=== PATIENT | female | born 1965 | race Caucasian/White ===

== ENCOUNTER 2020-02-29 11:51 | Outpatient (CLI) | payer BC, SELFPAY ==
--- NOTE | ~2020-02-29 | MM_ITS ---
EXAMINATION: MM diagnostic paco BI w rocky HISTORY: Follow-up of right upper outer quadrant microcalcifications. Screening of left breast. TECHNIQUE: ML, MLO and cc 3-D tomosynthesis images of both breasts were performed and synthetic 2-D i mages were generated. CAD analysis was submitted and interpreted. COMPARISON: 04/24/2019 diagnostic right digital mammogram 10/03/2018 diagnostic right digital mammogram , 09/03/2017, 08/23/2016 bilateral digital screening mammogram examinations BREAST PARENCHYMAL COMPOSITION: The breasts are heterogeneously dense, which may obscure small masses . FINDINGS: Occasional bilateral benign calcifications are noted. There is a biopsy marker in the upper outer quadrant of the right breast. History of prior benign rig ht breast biopsy. No suspicious mass, architectural distortion, malignant calcification, skin thickening or retraction or significant new or developing density since 08/23/2016 is detected. IMPRESSION: 1. No mammographic evidence of malignancy 2. Routine mammographic screening is recommended. BI-RADS Category 2: Benign finding(s). Reviewed, dictated and finalized at location A.
== END 2020-02-29 11:52 | disposition home or self-care (01) ==
LOC: ANHIMG 11:55
PROVIDERS: PCP Family Medicine; Visit Provider Obstetrics & Gynecology Gynecology
DX: R92.8 Other abnormal and inconclusive findings on diagnostic imaging of breast (principal)
CPT/HCPCS: 77062; 77066; G0279

== ENCOUNTER 2021-04-04 13:44 | Outpatient (CLI) | payer BC, SELFPAY ==
--- NOTE | ~2021-04-04 | MM_ITS ---
EXAMINATION: MM screening paco BI w rocky HISTORY: Screening TECHNIQUE: Craniocaudal and mediolateral oblique 3-D tomosynthesis images were obtained and synthetic 2-D images were generated. CAD analysis was submitted and interpreted. COMPARISON: Comparison to multiple prior studies sequentially, with oldest reviewed study dated 08/23. BREAST PARENCHYMAL COMPOSITION: The breasts are heterogeneously dense, which may obscure small masses . FINDINGS: There is no evidence of suspicious mass, calcification, or architectural distortion to sugg est malignancy in either breast. There has been no suspicious interval change. IMPRESSION: 1. No mammographic evidence of malignancy. 2. Recommend routine screening mammography in one year. BI-RADS Category 1: Negative Reviewed, dictated and finalized at location A.
== END 2021-04-04 13:45 | disposition home or self-care (01) ==
LOC: ANHIMG 13:47
PROVIDERS: PCP Family Medicine; Visit Provider Obstetrics & Gynecology Gynecology
DX: Z12.31 Encounter for screening mammogram for malignant neoplasm of breast (principal)
CPT/HCPCS: 77063; 77067

== ENCOUNTER 2022-01-25 00:34 | Day surgery (SDC) | payer BC, SELFPAY ==
[2022-01-11 11:31] VITALS: BMI 22.3
--- NOTE | 2022-01-24 13:59 | P.PNAN_ITS ---
Anes - Initial Pre Proc Eval Procedure: Operation Date: 01/25/22 09:00 Proposed Procedures p Screening Colonoscopy - Harris Mcrae MD Date/Time: 01/24/22 13:59 Surgeon: Harris Mcrae MD Pre Op Diagnosis: neoplasm screening Patient Data Age: 56 Gender: F Height: 1.63 m Weight: 59 kg Allergies Allergy/AdvReac Type Severity Reaction Status Date / Time No Known Allergies Allergy Verified 01/25/22 07:44 Home Medications Medication Instructions Recorded Confirmed Type nortriptyline 75 mg capsule 75 mg PO DAILY 10/09/19 01/25/22 History simvastatin 10 mg tablet 10 mg PO DAILY 10/09/19 01/25/22 History lorazepam 0.5 mg tablet 0.5 mg PO DAILY PRN anxiety #30 03/20/21 01/25/22 Rx tabs escitalopram oxalate 10 mg tablet 10 mg PO DAILY #30 tabs 10/19/21 01/25/22 Rx sodium sul 1.479 gram-potas ch See Rx Instructions PO PER PKG DIR 01/03/22 01/25/22 Rx 0.188 gram-magnes sul 0.225 gram #24 tabs tablet (Sutab) Patient hx anesthesia problems: none Family hx anesthesia problems: none Results Review: All pre-operative results and documents have been reviewed as part of the pre- operative evaluation. [facility] Past Medical History Medical History Anxiety disorder, unspecified Migraine Mixed hyperlipidemia Family History Family History Father Hypertension Family history of mental disorder, Onset Age: 88 Cerebrovascular accident, Onset Age: 88 Mother Family history of mental disorder Family history of arthritis Social History Social History Smoking status: Never smoker Alcohol intake: never Substance use: never Substance use type: does not use Living arrangements: with family Spiritual care concerns: No Anes - Eval Final PreProcedure Day of Procedure 01/24/22 13:59 Patient weight: normal Heart: regular rate and rhythm Lungs: clear to auscultation Airway: Mallampati scale class II Neurological: alert and oriented Last oral intake: >/= 8 hours ASA classification: II Emergent: no Anesthetic plan: proceed Anesthesia type and monitoring: general GIVS and standard monitoring Results Review: All pre-operative results and documents have been reviewed as part of the pre- operative evaluation. Informed Consent: The patient's anesthetic plan and its attendant risks and benefits were discussed with the patient/family/POA. Questions were solicited and answers provided to the satisfaction of the patient/family/POA.
[2022-01-25 07:45] VITALS: BP 109/67; PULSE 104; RESP 16; TEMP 36.4; O2SAT 100
[2022-01-25] MEDS: LACTATED RINGERS 1,000 ML 150 ML IV CONT (07:53)
--- NOTE | 2022-01-25 08:17 | PM.HPGS ---
History of Present Illness History of Present Illness Consent: Risks, benefits, and alternatives have been discussed and questions answered. Patient agrees to proceed with procedure. Chief complaint: neoplasm screening Narrative: Bia Marrufo is a 56 year old female Referred for colon cancer screening. Review of Systems Review of Systems: All systems reviewed & are unremarkable except as noted in HPI and below PMFSH Past Medical History Medical History Anxiety disorder, unspecified Migraine Mixed hyperlipidemia Family History Family History Father Hypertension Family history of mental disorder, Onset Age: 88 Cerebrovascular accident, Onset Age: 88 Mother Family history of mental disorder Family history of arthritis Social History Social History Smoking status: Never smoker Alcohol intake: never Substance use: never Substance use type: does not use Living arrangements: with family Spiritual care concerns: No Meds Home Medications and Allergies Home Medications Medication Instructions Recorded Confirmed Type nortriptyline 75 mg capsule 75 mg PO DAILY 10/09/19 01/25/22 History simvastatin 10 mg tablet 10 mg PO DAILY 10/09/19 01/25/22 History lorazepam 0.5 mg tablet 0.5 mg PO DAILY PRN anxiety #30 03/20/21 01/25/22 Rx tabs escitalopram oxalate 10 mg tablet 10 mg PO DAILY #30 tabs 10/19/21 01/25/22 Rx sodium sul 1.479 gram-potas ch See Rx Instructions PO PER PKG DIR 01/03/22 01/25/22 Rx 0.188 gram-magnes sul 0.225 gram #24 tabs tablet (Sutab) Allergies Allergy/AdvReac Type Severity Reaction Status Date / Time No Known Allergies Allergy Verified 01/25/22 07:44 Vital Signs Vital Signs - 24 hr 01/25/22 07:45 Temperature 36.4 C Pulse Rate 104 H Respiratory Rate 16 Blood Pressure 109/67 Pulse Oximetry 100 Oxygen Delivery Room Air Exam Const: General: alert Orientation/consciousness: patient oriented x3 Resp: Auscultation: clear to auscultation bilaterally Cardio: Rhythm: regular rhythm GI: GI Palp: Yes Soft to palpation and No Tenderness to palpation present (GI) Neuro: General: patient oriented x3 Assessment and Plan Assessment and plan (1) Colon cancer screening: Code(s): Z12.11 - Encounter for screening for malignant neoplasm of colon Status: Acute Assessment and Plan: Colonoscopy with possible biopsy or polypectomy or cautery or injection of substances.
[2022-01-25 09:14] VITALS: BP 101/58; PULSE 84; RESP 11; O2SAT 100
[2022-01-25 09:24] VITALS: BP 97/65; PULSE 84; RESP 14; O2SAT 100
[2022-01-25 09:34] VITALS: BP 107/59; PULSE 86; RESP 18; O2SAT 100
== END 2022-01-25 09:40 | disposition home or self-care (01) ==
PROVIDERS: PCP Family Medicine; Visit Provider Internal Medicine Gastroenterology
PROC: 0DJD8ZZ Inspection of Lower Intestinal Tract, Via Natural or Artificial Opening Endoscopic (ICD-10-PCS; CPT 45378; principal; 2022-01-25 09:00)
DX: Z12.11 Encounter for screening for malignant neoplasm of colon (principal); F41.9 Anxiety disorder, unspecified; E78.2 Mixed hyperlipidemia
CPT/HCPCS: 45378; J2704; J7120

== ENCOUNTER 2023-02-15 07:33 | Outpatient (CLI) | payer BC, SELFPAY ==
--- NOTE | ~2023-02-15 | MM_ITS ---
EXAMINATION: MM screening paco BI w rocky HISTORY: Screening mammogram TECHNIQUE: Craniocaudal and mediolateral oblique 3-D tomosynthesis images were obtained and synthetic 2-D images were generated. CAD analysis was submitted and interpreted. COMPARISON: 04/04/2021, 02/29/2020, 04/24/2019 bilateral screening mammogram examinations BREAST PARENCHYMAL COMPOSITION: The breasts are heterogeneously dense, which may obscure small masses . FINDINGS: There is a biopsy marker on the right, in the upper outer quadrant; history of prior benign right breast biopsy. There is no evidence of suspicious mass, calcification, or architectural distor tion to suggest malignancy in either breast. There has been no suspicious interval change. IMPRESSION: 1. No mammographic evidence of malignancy. 2. Recommend routine screening mammography in one year. BI-RADS Category 1: Negative Reviewed, dictated and finalized at location A.
--- NOTE | ~2023-02-15 | DEXA_ITS ---
Bone Density Report Name: LAYTON LI Age: 57 Sex: Female Ethnicity: White Date of : 1965 Indication: postmenopausal; screening for osteoporosis; Referring Provider: HILARIA, RAMY Study: Bone densitometry was performed. Exam Date: February 15, 2023 Accession number: [id number] Bone Density: Region BMD T-score Z-score Classification AP Spine(L1-L4) 1.088 0.4 1.7 Normal Femoral Neck (Left) 0.759 -0.8 0.4 Normal Total Hip (Left) 0.997 0.4 1.3 Normal World Health Organization criteria for BMD impression classify patients as: Normal (T-score at or above -1.0), Osteopenia (T-score between -1.0 and -2.5), or Osteoporosis (T-score at or below -2.5). 10-year Fracture Risk: FRAX not reported because: All T-scores for Spine Total, Hip Total, Femoral Neck at or above -1.0 Previous Exams: Region Exam Age BMD T-score BMD Change BMD Change Date g/cm2 vs Baseline vs Previous AP Spine (L1-L4) 02/15/2023 57 1.088 0.4 -0.066 (-5.7%) -0.066 (-5.7%) 09/09/2018 53 1.153 1.0 Total Hip(Left) 02/15/2023 57 0.997 0.4 -0.120 (-10.7% -0.120 (-10.7% 09/09/2018 53 1.116 1.4 *Denotes significance at 95% confidence level, LSC for AP Spine = 0.022 g/cm2, LSC for Total Hip = 0.027 g/cm2 Clinical Information Provided by Patient: Has used the following medications: Vitamin D Patient maximum height was 64.5 Menopause Age: 52 No regular weight bearing exercise Does not regularly consume dairy products Drinks caffeinated beverages Onset of menses at age 11 Number of children 2 Impression: The patient has normal bone mass. The BMD for the AP Spine (L1-L4) decreased, changing by -5.7% since the last DXA exam. The BMD for the Total Hip(Left) decreased, changing by -10.7% since the last DXA exam. Discussion: BONE DENSITY IS ABOVE THE MINIMUM DESIRABLE LEVEL AT ALL SKELETAL SITES TESTED. This patient?s bone mineral density is above the minimum desirable level (T-score -1.0 or better) at all sites measured. The patient should follow a healthful lifestyle (good nutrition with adequate calcium and vitamin D, and appropriate weight-bearing exercise). Follow-Up: Consider repeating this study in 3 to 4 years to reassess this patient's status, or sooner if there is some new clinical indication. Reported by: ISMAEL on 02/15/2023 8:05:00 AM. Reviewed, dictated and finalized at location AMaryanne TONY
== END 2023-02-15 07:34 | disposition home or self-care (01) ==
PROVIDERS: PCP Family Medicine; Visit Provider Obstetrics & Gynecology Gynecology
DX: Z12.31 Encounter for screening mammogram for malignant neoplasm of breast (principal); Z78.0 Asymptomatic menopausal state
CPT/HCPCS: 77063; 77067; 77080

== ENCOUNTER 2024-01-29 11:50 | Outpatient (CLI) | payer BC, SELFPAY ==
--- NOTE | ~2024-01-29 | XR_ITS ---
EXAMINATION: XR shoulder LT min 2V DATE: 01/29/2024 12:12 INDICATION: Left shoulder numbness. TECHNIQUE: 4 views of left shoulder were obtained. COMPARISON: None. FINDINGS: Alignment is normal. No fracture. Glenohumeral joint is normal. There is moderate acromiocl avicular joint osteoarthritis. IMPRESSION: 1. Moderate left acromioclavicular joint osteoarthritis. Reviewed, dictated and finalized at location A.
--- NOTE | ~2024-01-29 | XR_ITS ---
[id number] Ordering provider: Perfecto Reynolds NP History: . No injury, left shoulder numbness for 12 weeks . Comparison: None. FINDINGS: VERTEBRAL BODIES: Normal height and alignment. No visible fracture or subluxation. The dens is intact . Degenerative changes of the spine. DISK SPACES: Narrowing of the disc spaces C3-C4, C4-C5, C5-C6 and C6-7. Multilevel uncovertebral join t osteoarthritic changes. PARASPINOUS SOFT TISSUES: No prevertebral soft tissue swelling. IMPRESSION: No acute osseous abnormality cervical spine. Consider follow up MRI of the cervical spine if patient has continued neck pain and if there is freddie rn for spinal stenosis. Reviewed, dictated and finalized at location A. IMPRESSION: No acute osseous abnormality cervical spine. Consider follow up MRI of the cervical spine if patient has continued neck pain and if there is concern for spinal stenosis.
--- NOTE | ~2024-01-29 | XR_ITS ---
EXAMINATION: XR thoracic spine 2V DATE: 01/29/2024 12:12 INDICATION: Left shoulder numbness. TECHNIQUE: 2 views of thoracic spine were obtained. COMPARISON: None. FINDINGS: There is 12 degrees levoscoliosis of thoracic spine. Vertebral body heights are normal. The re is mildly decreased disc height at multiple levels in mid thoracic spine. There are endplate osteo phytes at many levels. IMPRESSION: 1. Mild thoracic spondylosis. 2. Thoracic levoscoliosis. Reviewed, dictated and finalized at location A.
== END 2024-01-29 11:51 ==
LOC: MICIMG 11:53
PROVIDERS: PCP Family Medicine
DX: M54.12 Radiculopathy, cervical region (principal); R20.2 Paresthesia of skin; M47.894 Other spondylosis, thoracic region
CPT/HCPCS: 72040; 72070; 73030

== ENCOUNTER 2024-06-16 07:19 | Outpatient (CLI) | payer BC, SELFPAY ==
--- NOTE | ~2024-06-16 | MM_ITS ---
EXAMINATION: MM screening [facility] BI w rocky HISTORY: Screening mammogram TECHNIQUE: Craniocaudal and mediolateral oblique 3-D tomosynthesis images were obtained and synthetic 2-D images were generated. CAD analysis was submitted and interpreted. COMPARISON: 02/15/2023, 04/04/2021, 02/29/2020 BREAST PARENCHYMAL COMPOSITION:Dense: The breasts are heterogeneously dense, which may obscure small masses. FINDINGS: No suspicious mass, calcification, or architectural distortion are identified in either anna ast to suggest malignancy. There has been no suspicious interval change. IMPRESSION: No mammographic evidence of malignancy. Recommend routine screening mammography in one year. BI-RADS Category 1: Negative Reviewed, dictated and finalized at location . DWORKS DESIGNER
== END 2024-06-16 07:20 | disposition home or self-care (01) ==
PROVIDERS: PCP Family Medicine; Visit Provider Nurse Practitioner
DX: Z12.31 Encounter for screening mammogram for malignant neoplasm of breast (principal)
CPT/HCPCS: 77063; 77067

== ENCOUNTER 2024-11-20 12:20 | Outpatient (CLI) | payer BC, SELFPAY ==
--- NOTE | ~2024-11-20 | XR_ITS ---
AP view of the pelvis and AP and lateral views of the left hip Clinical history: Pain Findings: No acute fracture or dislocation is seen. Osseous alignment is anatomic. Right hip arthropl asty in place. There is moderate degenerative change at the superior aspect of the left hip joint. So ft tissues are unremarkable. Impression: Moderate degenerative changes at the superior aspect the left hip joint. Right hip arthroplasty. Reviewed, dictated and finalized at location . Impression: Moderate degenerative changes at the superior aspect the left hip joint. Right hip arthroplasty.
--- NOTE | ~2024-11-20 | XR_ITS ---
Lumbosacral Spine: AP and lateral views Clinical History: Pain Findings: The normal lordotic curve is maintained. The vertebral bodies and posterior elements are i ntact. The intervertebral disc spaces are preserved. There is moderate facet arthropathy, especially from L4 through S1. The sacroiliac joints are normally outlined. Impression: Facet arthropathy at the lower lumbar spine, as above. Reviewed, dictated and finalized at location . Impression: Facet arthropathy at the lower lumbar spine, as above.
--- OUTSIDE RECORDS SUMMARY | 2024-11-20 12:25 | XMS_ITS | Referral Summary ---
Author Organization [facility] [address] Address [address] [place] [address] Care Team Providers Care Political Science Professor Name Role Phone Fco Ayala MD Primary Care Provider [phone] Encounters Date Type Department Care Team Description 09/02/2024 1:30 PM LUNCHROOM MOTHER Office Visit 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 (Primary Dx); Dyslipidemia; History of supraventricular tachycardia; Palpitations from Last 3 Months Allergies Active Allergy Reactions Criticality Noted Date Comments Shrimp Vomiting Low 11/08/2023 I get violently ill Medications nitroglycerin (NITROSTAT) 0.[address] 1 tablet (0.4MG) by sublingual route at the 1st sign of attack; may repeat every 5 min until relief; if pain persists after 3 tablets in 15 min, prompt medical attention is recommended 0 1 Active aspirin (HALFPRIN) 162 mg EC tablet take 1 tablet by oral route every day 0 1 Active Additional Information Patient taking differently: 81 mg, Reported on 09/02/2024 LORazepam (ATIVAN) 0.5 mg tablet take 1 Tablet by oral route every day as needed 0 0 6 Active nortriptyline (PAMELOR) 75 mg capsule take 1 capsule by oral route every day 0 1 Active escitalopram (LEXAPRO) 10 mg tablet take 1 tablet by oral route every day 0 0 7 Active Additional Information Patient taking differently:10 mgoral Daily, Informant: Self, Reported on 09/02/2024 cholecalciferol (VITAMIN D-3) 2000 unit capsule Take 1 capsule (2,000 Units total) by mouth daily 3 Active simvastatin (ZOCOR) 20 mg tablet TAKE 1 TABLET BY MOUTH EVERY DAY IN THE EVENING 90 tablet 1 4 Active Active Problems Problem Noted Date Diagnosed Date Coronary artery disease invo lving false pass coronary artery of false pass heart without angina pectoris 09/02/2024 Numbness and tingling in left arm 10/22/2023 Palpitations 10/09/2022 Gastroesophageal reflux disease 09/16/2020 History of supraventricular tachycardia 05/17/20 17 Other chest pain 05/17/2017 Anxiety 05/17/2017 Dyslipidemia 05/17/2017 History of cardiac arrhythmia 09/27/2016 Overview (11/09/2016): History of supraventricular tachycardia Chest discomfort 09/27/2016 Overview (11/09/2016): Chest pressure Social History Tobacco Use Types Packs/Day Years Used Date Smoking Tobacco: Never Smokeless Tobacco: Never Tobacco Cessation:Counseling Given: Not Answered Alcohol Use Standard Drinks/Week Comments No 0 (1 standard drink = 0.6 oz pur e alcohol) Comments Unknown Sex and Gender Information Value Date Recorded Sex Assigned at Not on file Legal Sex Female 12:32 AM LUNCHROOM MOTHER Gender Identity Not on file Sexual Orientation Not on file Last Filed Vital Signs Vital Sign Reading Time Taken Comments Blood Pressure 110/70 09/02/2024 1:21 PM LUNCHROOM MOTHER Pulse 89 09/02/2024 1:21 PM LUNCHROOM MOTHER Temperature - - Respiratory Rate 16 03/17/2018 11:52 AM CDT Oxygen Saturation 97% 09/02/2024 1:21 PM LUNCHROOM MOTHER Inhaled Oxygen Concentration - - Weight 61.7 kg (136 lb) 09/02/2024 1:21 PM LUNCHROOM MOTHER Height 162.6 cm (5' 4 ) 09/02/2024 1:21 PM LUNCHROOM MOTHER Body Mass Index 23.34 09/02/2024 1:21 PM LUNCHROOM MOTHER Plan of Treatment Not on file Insurance ANTHEM ACCESS CHOICE [employer] ACCESS CHOICE ANTHEM ACCESS CHOICE Care Teams Political Science Professor Relationship Specialty Start Date End Date Fco Ayala MD PCP - General 11/02/16
--- OUTSIDE RECORDS SUMMARY | 2024-11-20 12:25 | XMS_ITS | Encounter Summary ---
Author Organization [facility] Address [address] [place] [address] Care Team Providers Care Cable Mock Up Assembler Name Role Phone Fco Ayala MD Primary Care Provider + [phone] Fco Ayala MD Primary Care Provider + [phone] Encounter Details Date Type Department Care Team (Late st Contact Info) Description 09/27/2016 Orders Only [facility] ProviderDaja MD [address] [place] [id number] Social History Tobacco Use Types Packs/Day Years Used Date Smoking Tobacco: Never Alcohol Use Standard Drinks/Week Comments No 0 (1 standard drink = 0.6 oz pur e alcohol) Comments Unknown Sex and Gender Information Value Date Recorded Sex Assigned at Not on file Legal Sex Female 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 Historical Provider [facility] Final Result documented in this encounter Visit Diagnoses Not on filedocumented in this encounter Care Teams Cable Mock Up Assembler Relationship Specialty Start Date End Date Fco Ayala MD PCP - General 11/02/16 Fco Ayala MD PCP - General 03/13/11 11/01/16 documented as of this encounter
--- OUTSIDE RECORDS SUMMARY | 2024-11-20 12:25 | XMS_ITS | Clinical Summary ---
Author Organization [facility] Address [address] [place] [address] Care Team Providers Care Black Off Worker Name Role Phone Fco Ayala MD Primary Care Provider [phone] Social History Tobacco Use Types Packs/Day Years Used Date Smoking Tobacco: Never Assessed Comments Unknown Sex and Gender Information Value Date Recorded Sex Assigned at Not on file Legal Sex Female 11:15 PM GEOMATICS PROFESSOR Gender Identity Not on file Sexual Orientation Not on file Plan of Treatment Health Maintenance Due Date Last Done Comments Cervical Cancer Screening Pap Smear (Age 30 to 64) Every 3 Years 1965 Colorectal Cancer Screening Colonoscopy (10 Years) 1965 Annual Physical 1967 Hepatitis C 1982 Cervical Cancer Screening Pap with HPV Testing (Age 30 to 64) Every 5 Years 1994 Cervical Cancer Screening with HPV 1994 Mammogram Screening 2004 Zoster Vaccines (1 of 2) 2014 COVID-19 Vaccine ( season) 2024 05/08/2023, 02/20/2022, 07/17/2021, Additional history exists DTaP, Tdap and Td Vaccines (2 - Td or Tdap) 02/16/2031 02/16/2021 RSV Immunization or 60+ Years (1 - 1-dose 75+ series) 2039 Meningococcal B Vaccine Aged Out No l onger eligible based on patient's age to complete this topic Meningococcal Vaccine Aged Out No armani harika eligible based on patient's age to complete this topic Pneumococcal Vaccine: Pediatrics (0 to 5 Years) and At-Risk Patients (6 to 49 Years) Aged Out No longer eligible based on patient's age to complete this topic RSV Immunizations Under 20 Months Aged Out No longer eligible based on patient's age to complete this topic Insurance [facility] Care Teams Black Off Worker Relationship Specialty Start Date End Date Fco Ayala MD [address] [place] [address] PCP - General FAMILY PRACTICE 06/07/23
--- OUTSIDE RECORDS SUMMARY | 2024-11-20 12:25 | XMS_ITS | Encounter Summary ---
Author Organization [facility] Address [address] [place] [address] Care Team Providers Care Ingot Stripper Name Role Phone Fco Ayala MD Primary Care Provider + [phone] Fco Ayala MD Primary Care Provider + [phone] Encounter Details Date Type Department Care Team (Late st Contact Info) Description 10/04/2016 Orders Only [facility] ProviderDaja MD [address] [place] [id number] Social History Tobacco Use Types Packs/Day Years Used Date Smoking Tobacco: Never Alcohol Use Standard Drinks/Week Comments No 0 (1 standard drink = 0.6 oz pur e alcohol) Comments Unknown Sex and Gender Information Value Date Recorded Sex Assigned at Not on file Legal Sex Female 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 Historical Provider [facility] Final Result documented in this encounter Visit Diagnoses Not on filedocumented in this encounter Care Teams Ingot Stripper Relationship Specialty Start Date End Date Fco Ayala MD PCP - General 11/02/16 Fco Ayala MD PCP - General 03/13/11 11/01/16 documented as of this encounter
--- OUTSIDE RECORDS SUMMARY | 2024-11-20 12:25 | XMS_ITS | Clinical Summary ---
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 09/02/2024 Numbness and tingling in left arm 10/22/2023 Palpitations 10/09/2022 Gastroesophageal reflux disease 09/16/2020 History of supraventricular tachycardia 05/17/20 17 Other chest pain 05/17/2017 Anxiety 05/17/2017 Dyslipidemia 05/17/2017 History of cardiac arrhythmia 09/27/2016 Overview (11/09/2016): History of supraventricular tachycardia Chest discomfort 09/27/2016 Overview (11/09/2016): Chest pressure Encounters Date Type Department Care Team Description 09/02/2024 1:30 PM [employer] Office Visit [facility] [address] [facility] [address] [place] [address] Matthieu Villasenor MD Coronary artery disease involving seneca coronary artery of seneca heart without angina pectoris (Primary Dx); Dyslipidemia; History of supraventricular tachycardia; Palpitations from Last 3 Months Surgical History Surgery Date Site/Laterality Comments TUBAL LIGATION Bilateral tubal ligation JOINT REPLACEMENT 12/04/2015 - 01/03/2016 Medical History Medical History Date Comments Hx Other Medical Migraines Hx Other Medical Chronic Anxiety Peptic ulcer 1995 Peptic Ulcer Dis ease Anxiety Arthritis Migraines Family History Medical History Relation Name Comments Coronary artery disease Father Ian Guerrero naralejandra Artery Bypass Graft; Diabetes Father Ian Arthritis Mother Richard Other Mother Richard Alive and well; Relation Name Status Comments Father Ian Alive Mother Richard Alive Social History Tobacco Use Types Packs/Day Years Used Date Smoking Tobacco: Never Smokeless Tobacco: Never Tobacco Cessation:Counseling Given: Not Answered Alcohol Use Standard Drinks/Week Comments No 0 (1 standard drink = 0.6 oz pur e alcohol) Comments Unknown Sex and Gender Information Value Date Recorded Sex Assigned at Not on file Legal Sex Female 12:32 AM [employer]ALL [employer] Gender Identity Not on file Sexual Orientation Not on file Obstetrics History Last Filed Vital Signs Vital Sign Reading Time Taken Comments Blood Pressure 110/70 09/02/2024 1:21 PM [employer] Pulse 89 09/02/2024 1:21 PM [employer] Temperature - - Respiratory Rate 16 03/17/2018 11:52 AM CDT Oxygen Saturation 97% 09/02/2024 1:21 PM [employer] Inhaled Oxygen Concentration - - Weight 61.7 kg (136 lb) 09/02/2024 1:21 PM [employer] Height 162.6 cm (5' 4 ) 09/02/2024 1:21 PM [employer] Body Mass Index 23.34 09/02/2024 1:21 PM [employer] Plan of Treatment Health Maintenance Due Date Last Done Comments Breast Cancer Screening-Mammogram 1964 Cervical Cancer Screening 1964 Colon Cancer Screening-Colonoscopy 1964 Depression Screening 1964 Hepatitis C Screening 1964 Hepatitis B Screening 1982 Regular Well Visit/Exam 18-64 1982 Zoster Vaccine (1 of 2) 2014 Covid-19 Vaccine (2023-2 5 season) 2024 07/17/2021, 11/20/2020, 10/30/2020 Influenza Vaccine (#1) 2024 06/22/2021 DTaP/Tdap/Td Vaccine (2 - Td or Tdap) 02/16/2031 02/16/2021 Pneumococcal vaccine <65 Aged Out No longer eligible based on patient's age to complete this topic Insurance [facility] [employer] [facility] ANTHEM ACCESS CHOICE ANTHEM ACCESS CHOICE Care Teams Readiness Paraprofessional Relationship Specialty Start Date End Date Fco Ayala MD PCP - General 11/02/16
== END 2024-11-20 12:21 | disposition home or self-care (01) ==
PROVIDERS: PCP Family Medicine; Visit Provider Nurse Practitioner Adult Health
DX: M47.816 Spondylosis without myelopathy or radiculopathy, lumbar region (principal); M16.12 Unilateral primary osteoarthritis, left hip; Z96.641 Presence of right artificial hip joint; M54.32 Sciatica, left side
CPT/HCPCS: 72100; 73502